=== PATIENT | female | born 1975 | race Caucasian/White ===

== ENCOUNTER 2019-02-15 06:37 | Emergency (ER) | payer SELFPAY ==
[2019-02-15 06:45] VITALS: BP 216/117; PULSE 86; RESP 19; TEMP 37; O2SAT 97; BMI 31.2
--- NOTE | 2019-02-15 06:47 | DI.RAD.S_ITS ---
PROCEDURE: XR CHEST 1V INDICATIONS: Shortness of breath, cough TECHNIQUE: One view of the chest was acquired. COMPARISON: None. FINDINGS: Surgical changes and devices: None. Lungs and pleura: Lungs are clear. No pleural effusions or pneumothorax. Mediastinum: Mediastinal contours appear normal. Heart size is normal. Bones and chest wall: No suspicious bony lesions. Overlying soft tissues appear unremarkable. IMPRESSION: No active cardiopulmonary disease. Dictated by: Melba Woody M.D. on 02/15/2019 at 9:19 Approved by: Melba Woody M.D. on 02/15/2019 at 9:19
--- NOTE | 2019-02-15 06:51 | ED_ITS ---
HPI - Back Pain/Injury <Mal Dillon DO - Last Filed: 02/15/19 21:52> General Chief Complaint: Back Pain/Injury Stated Complaint: doesn't feel right, alot of pain Time Seen by Provider: 02/15/19 06:38 Source: patient Limitations: no limitations History of Present Illness HPI Narrative: 43-year-old female nonsmoker with history of significant hypertension even while on medications presents with her significant other in the chief complaint of fever, shaking chills back pain as well as shortness of breath and cough for the past few days. She had been having urinary complaints for upwards of 3 weeks including dysuria, frequency and urgency before presenting to would be general on Monday. She was diagnosed with pyelonephritis and put on cefdinir. She has been taking medications as directed but presents today feeling as stated. She continues to have some difficulty with urination and even admits to decreased urination. She is a bit weak and generally feeling under the weather. She had initially presented to the above-stated emergency department again but the wait was too long hence her decision to come here MD Complaint: back pain Onset (ago): day(s) Duration: constant Similar Symptoms Previously: Yes Location: left flank and right flank Severity: moderate Quality: aching Radiation: none Relieving factors: none Exacerbating factors: movement Associated symptoms: weakness, fatigue, fever and dysuria Related Data Previous Rx's Medication Instructions Recorded levofloxacin [Levaquin] 750 mg PO DAILY #7 tab 02/15/19 Allergies Allergy/AdvReac Type Severity Reaction Status Date / Time Sulfa (Sulfonamide Allergy Verified 02/15/19 07:07 Antibiotics) Review of Systems <DO Luis Carlos Ye Last Filed: 02/15/19 21:52> Constitutional Constitutional: Reports body ache(s), Reports chills, Reports fatigue, Reports fever(s), Denies frequent falls, Denies lethargy and Reports weakness Eyes Eyes: Denies change in vision, Denies eye discharge, Denies irritation and Denies loss of vision ENT Ears, Nose, Mouth, and Throat: Denies change in voice, Denies dizziness, Denies neck pain, Denies sore throat and Denies throat swelling Cardiovascular Cardiovascular: Denies chest pain, Denies irregular heart rhythm, Denies lightheadedness, Denies palpitations, Denies dyspnea, Denies dyspnea on exertion and Denies orthopnea Respiratory Respiratory: Denies cough, Denies dyspnea, Denies dyspnea on exertion and Denies wheezing Gastrointestinal Gastrointestinal: Denies abdominal pain, Denies change in bowel habits, Denies diarrhea, Denies nausea and Denies vomiting Genitourinary Genitourinary: Denies hematuria, Reports flank pain, Denies urinary incontinence and Reports urinary urgency Musculoskeletal Musculoskeletal: Reports back pain, Denies muscle weakness, Denies neck pain, Denies numbness and Denies tingling Integumentary/Breasts Skin/Breast: Denies pruritus, Denies erythema, Denies rash and Denies wounds Neurologic Neurologic: Denies behavioral changes, Denies confusion, Denies dizziness, Denies frequent falls, Denies loss of vision, Denies numbness, Denies tingling and Reports weakness Psychiatric Psychiatric: Denies anxiety, Denies behavioral changes, Denies confusion, Denies depression, Denies homicidal ideation and Denies suicidal ideation Endocrine Endocrine: Reports fatigue, Denies flushing and Denies palpitations Hematologic/Lymphatic Hematologic/Lymphatic: Denies easy bruising Allergic/Immunologic Allergic/Immunologic: Denies urticaria, Denies throat swelling and Denies wheezing Patient History <Mal Dillon DO - Last Filed: 02/15/19 21:52> Social History Smoking Status: Current every day smoker Substance Use Type: marijuana Exam <Mal Dillon DO - Last Filed: 02/15/19 21:52> Narrative Exam Narrative: GENERAL: [43] year old patient appears stated age. Well- nourished, well-developed patient, in mild distress. HEAD: Atraumatic. Normocephalic. EYES: Pupils equal round and reactive. Extraocular motions intact. No scleral icterus. No injection or drainage. ENT: Nose without bleeding, purulent drainage. Throat without erythema, tonsillar hypertrophy or exudate. Airway patent. NECK: Trachea midline. Non tender CARDIOVASCULAR: Regular rate and rhythm without murmurs, gallops, or rubs. RESPIRATORY: Clear to auscultation. Breath sounds equal bilaterally. No wheezes, rales, or rhonchi. GASTROINTESTINAL: Abdomen soft, non-tender, nondistended. EXTREMITIES: No edema or joint tenderness. BACK: Mild B/L flank pain NEURO: AOx3. SKIN: No rash or erythema of visible areas Initial Vital Signs Initial Vital Signs: Vital Signs Temperature 98.6 F 02/15/19 06:45 Pulse Rate 86 02/15/19 06:45 Respiratory Rate 19 02/15/19 06:45 Blood Pressure 216/117 H 02/15/19 06:45 Pulse Oximetry 97 02/15/19 06:45 <Jenn Tripp DO - Last Filed: 02/15/19 15:02> Initial Vital Signs Initial Vital Signs: Vital Signs Temperature 98.6 F 02/15/19 06:45 Pulse Rate 86 02/15/19 06:45 Respiratory Rate 19 02/15/19 06:45 Blood Pressure 216/117 H 02/15/19 06:45 Pulse Oximetry 97 02/15/19 06:45 Course <Mal Dillon DO - Last Filed: 02/15/19 21:52> Course Course Narrative: initial exam and workup initiated by myself, signed out to Dr. Tripp for completion of care Orders Ordered: Discontinued Medications Sodium Chloride (Normal Saline 0.9%) 1,000 mls @ 1,000 mls/hr IV BOLUS ONE Stop: 02/15/19 07:46 Last Infusion: 02/15/19 09:14 Dose: 0 mls/hr Documented by: Admin: 02/15/19 07:05 Dose: 1,000 mls/hr Documented by: MILDRED Levofloxacin (Levaquin) 500 mg in 100 mls @ 100 mls/hr IV NOW ONE Stop: 02/15/19 07:46 Last Infusion: 02/15/19 09:13 Dose: 0 mls/hr Documented by: Admin: 02/15/19 07:05 Dose: 100 mls/hr Documented by: MILDRED Ketorolac Tromethamine (Toradol) 15 mg IV NOW ONE Stop: 02/15/19 06:48 Last Admin: 02/15/19 07:04 Dose: 15 mg Documented by: MILDRED Vital Signs Vital signs: Vital Signs - 8 hr 02/15/19 07:45 02/15/19 08:30 02/15/19 08:59 Pulse Rate 78 80 75 Respiratory Rate 20 14 26 H Blood Pressure [Left Arm] 176/103 H 116/81 116/81 Pulse Oximetry 98 100 100 <Jenn Tripp DO - Last Filed: 02/15/19 15:02> Orders Ordered: Discontinued Medications Sodium Chloride (Normal Saline 0.9%) 1,000 mls @ 1,000 mls/hr IV BOLUS ONE Stop: 02/15/19 07:46 Last Infusion: 02/15/19 09:14 Dose: 0 mls/hr Documented by: Admin: 02/15/19 07:05 Dose: 1,000 mls/hr Documented by: MILDRED Levofloxacin (Levaquin) 500 mg in 100 mls @ 100 mls/hr IV NOW ONE Stop: 02/15/19 07:46 Last Infusion: 02/15/19 09:13 Dose: 0 mls/hr Documented by: Admin: 02/15/19 07:05 Dose: 100 mls/hr Documented by: MILDRED Ketorolac Tromethamine (Toradol) 15 mg IV NOW ONE Stop: 02/15/19 06:48 Last Admin: 02/15/19 07:04 Dose: 15 mg Documented by: MILDRED Vital Signs Vital signs: Vital Signs - 8 hr 02/15/19 07:45 02/15/19 08:30 02/15/19 08:59 Pulse Rate 78 80 75 Respiratory Rate 20 14 26 H Blood Pressure [Left Arm] 176/103 H 116/81 116/81 Pulse Oximetry 98 100 100 MDM - Back Pain/Injury <Mal Dillon DO - Last Filed: 02/15/19 21:52> Lab Data Result diagrams: 02/15/19 07:15 02/15/19 07:15 Labs: Lab Results 02/15/19 02/15/19 02/15/19 Range/Units 07:15 07:15 07:15 WBC 11.2 H (4.5-11.0) X10^3/uL RBC 4.82 (4.0-5.2) X10^6/uL Hgb 13.3 (12.0-16.0) g/dL Hct 39.6 (36-46) % MCV 82.2 (80-100) fL MCH 27.7 (26-34) PG MCHC 33.7 (30-36) % RDW 13.0 (11.6-14.8) % Plt Count 362 (150-400) X10^3/uL Neut % (Auto) 67.1 (50-75) % Lymph % (Auto) 21.7 L (25-40) % Cecil % (Auto) 9.2 (3-14) % Eos % (Auto) 1.2 L (2-4) % Baso % (Auto) 0.8 (0-2) % Neut # (Auto) 7500 H (4234-1374) /uL Lymph # (Auto) 2400 (2527-4372) /uL Cecil # (Auto) 1000 H (0-900) /uL Eos # (Auto) 100 (0-450) /uL Baso # (Auto) 100 (0-100) /uL Sodium 137 (137-145) mmol/L Potassium 3.4 (3.4-5.1) mmol/L Chloride 99 (98-107) mmol/L Carbon Dioxide 28 (22-32) mmol/L BUN 13 (7-17) mg/dL Creatinine 0.70 (0.52-1.04) mg/dL Estimated GFR > 60.0 (>60) mL/min BUN/Creatinine Ratio 18.6 (6-22) Glucose 104 H (70-100) mg/dL Lactate (0.7-2.1) mmol/L Calcium 9.7 (8.4-10.2) mg/dL Total Bilirubin 0.3 (0.2-1.3) mg/dL AST 19 (14-36) IU/L ALT 15 (<35) IU/L Alkaline Phosphatase 87 (38-126) U/L Total Creatine Kinase (30-135) U/L CK-MB (CK-2) CK-MB (CK-2) Rel Index Troponin I (0.01-0.034) ng/mL Total Protein 7.6 (6.3-8.2) g/dL Albumin 4.3 (3.5-5.0) g/dL Globulin 3.3 (1.7-4.1) g/dL Albumin/Globulin Ratio 1.3 (1.0-2.8) Procalcitonin < 0.05 (<0.5) ng/mL Urine RBC (0-5/HPF) Urine WBC (0-5/HPF) Ur Squamous Epith Cells (0-5/HPF) Urine Bacteria (None) Ur Culture Indicated? 11/08/19 11/08/19 11/08/19 Range/Units 07:15 07:15 07:58 WBC (4.5-11.0) X10^3/uL RBC (4.0-5.2) X10^6/uL Hgb (12.0-16.0) g/dL Hct (36-46) % MCV (80-100) fL MCH (26-34) PG MCHC (30-36) % RDW (11.6-14.8) % Plt Count (150-400) X10^3/uL Neut % (Auto) (50-75) % Lymph % (Auto) (25-40) % Cecil % (Auto) (3-14) % Eos % (Auto) (2-4) % Baso % (Auto) (0-2) % Neut # (Auto) (3745-0647) /uL Lymph # (Auto) (7339-8742) /uL Cecil # (Auto) (0-900) /uL Eos # (Auto) (0-450) /uL Baso # (Auto) (0-100) /uL Sodium (137-145) mmol/L Potassium (3.4-5.1) mmol/L Chloride (98-107) mmol/L Carbon Dioxide (22-32) mmol/L BUN (7-17) mg/dL Creatinine (0.52-1.04) mg/dL Estimated GFR (>60) mL/min BUN/Creatinine Ratio (6-22) Glucose (70-100) mg/dL Lactate 1.4 (0.7-2.1) mmol/L Calcium (8.4-10.2) mg/dL Total Bilirubin (0.2-1.3) mg/dL AST (14-36) IU/L ALT (<35) IU/L Alkaline Phosphatase (38-126) U/L Total Creatine Kinase 46 (30-135) U/L CK-MB (CK-2) TNP CK-MB (CK-2) Rel Index TNP Troponin I < 0.012 (0.01-0.034) ng/mL Total Protein (6.3-8.2) g/dL Albumin (3.5-5.0) g/dL Globulin (1.7-4.1) g/dL Albumin/Globulin Ratio (1.0-2.8) Procalcitonin (<0.5) ng/mL Urine RBC 1-5/hpf (0-5/HPF) Urine WBC 0-1/hpf (0-5/HPF) Ur Squamous Epith Cells 5-10 /hpf H (0-5/HPF) Urine Bacteria Occasional (0-1) (None) Ur Culture Indicated? Cult not indicated Point of Care Testing Test Results Negative Urine Dip Bedside Urine Glucose Negative Bedside Urine Bilirubin - Negative Bedside Urine Ketone - Negative Urine Specific [place] 1.015 Bedside Urine Occult Blood +/- Bedside Urine pH 6.0 Bedside Urine Protein - Negative Bedside Urine Urobilinogen - Negative Bedside Urine Nitrite - Negative Bedside Urine Leukocytes - Negative Esterase <Jenn Tripp DO - Last Filed: 02/15/19 15:02> Lab Data Attestation: I reviewed the patient's lab results. Labs: Lab Results 02/15/19 02/15/19 02/15/19 Range/Units 07:15 07:15 07:15 WBC 11.2 H (4.5-11.0) X10^3/uL RBC 4.82 (4.0-5.2) X10^6/uL Hgb 13.3 (12.0-16.0) g/dL Hct 39.6 (36-46) % MCV 82.2 (80-100) fL MCH 27.7 (26-34) PG MCHC 33.7 (30-36) % RDW 13.0 (11.6-14.8) % Plt Count 362 (150-400) X10^3/uL Neut % (Auto) 67.1 (50-75) % Lymph % (Auto) 21.7 L (25-40) % Cecil % (Auto) 9.2 (3-14) % Eos % (Auto) 1.2 L (2-4) % Baso % (Auto) 0.8 (0-2) % Neut # (Auto) 7500 H (3163-7253) /uL Lymph # (Auto) 2400 (8378-2479) /uL Cecil # (Auto) 1000 H (0-900) /uL Eos # (Auto) 100 (0-450) /uL Baso # (Auto) 100 (0-100) /uL Sodium 137 (137-145) mmol/L Potassium 3.4 (3.4-5.1) mmol/L Chloride 99 (98-107) mmol/L Carbon Dioxide 28 (22-32) mmol/L BUN 13 (7-17) mg/dL Creatinine 0.70 (0.52-1.04) mg/dL Estimated GFR > 60.0 (>60) mL/min BUN/Creatinine Ratio 18.6 (6-22) Glucose 104 H (70-100) mg/dL Lactate (0.7-2.1) mmol/L Calcium 9.7 (8.4-10.2) mg/dL Total Bilirubin 0.3 (0.2-1.3) mg/dL AST 19 (14-36) IU/L ALT 15 (<35) IU/L Alkaline Phosphatase 87 (38-126) U/L Total Creatine Kinase (30-135) U/L CK-MB (CK-2) CK-MB (CK-2) Rel Index Troponin I (0.01-0.034) ng/mL Total Protein 7.6 (6.3-8.2) g/dL Albumin 4.3 (3.5-5.0) g/dL Globulin 3.3 (1.7-4.1) g/dL Albumin/Globulin Ratio 1.3 (1.0-2.8) Procalcitonin < 0.05 (<0.5) ng/mL Urine RBC (0-5/HPF) Urine WBC (0-5/HPF) Ur Squamous Epith Cells (0-5/HPF) Urine Bacteria (None) Ur Culture Indicated? 02/15/19 02/15/19 02/15/19 Range/Units 07:15 07:15 07:58 WBC (4.5-11.0) X10^3/uL RBC (4.0-5.2) X10^6/uL Hgb (12.0-16.0) g/dL Hct (36-46) % MCV (80-100) fL MCH (26-34) PG MCHC (30-36) % RDW (11.6-14.8) % Plt Count (150-400) X10^3/uL Neut % (Auto) (50-75) % Lymph % (Auto) (25-40) % Cecil % (Auto) (3-14) % Eos % (Auto) (2-4) % Baso % (Auto) (0-2) % Neut # (Auto) (3993-2650) /uL Lymph # (Auto) (6725-0777) /uL Cecil # (Auto) (0-900) /uL Eos # (Auto) (0-450) /uL Baso # (Auto) (0-100) /uL Sodium (137-145) mmol/L Potassium (3.4-5.1) mmol/L Chloride (98-107) mmol/L Carbon Dioxide (22-32) mmol/L BUN (7-17) mg/dL Creatinine (0.52-1.04) mg/dL Estimated GFR (>60) mL/min BUN/Creatinine Ratio (6-22) Glucose (70-100) mg/dL Lactate 1.4 (0.7-2.1) mmol/L Calcium (8.4-10.2) mg/dL Total Bilirubin (0.2-1.3) mg/dL AST (14-36) IU/L ALT (<35) IU/L Alkaline Phosphatase (38-126) U/L Total Creatine Kinase 46 (30-135) U/L CK-MB (CK-2) TNP CK-MB (CK-2) Rel Index TNP Troponin I < 0.012 (0.01-0.034) ng/mL Total Protein (6.3-8.2) g/dL Albumin (3.5-5.0) g/dL Globulin (1.7-4.1) g/dL Albumin/Globulin Ratio (1.0-2.8) Procalcitonin (<0.5) ng/mL Urine RBC 1-5/hpf (0-5/HPF) Urine WBC 0-1/hpf (0-5/HPF) Ur Squamous Epith Cells 5-10 /hpf H (0-5/HPF) Urine Bacteria Occasional (0-1) (None) Ur Culture Indicated? Cult not indicated Point of Care Testing Test Results Negative Urine Dip Bedside Urine Glucose Negative Bedside Urine Bilirubin - Negative Bedside Urine Ketone - Negative Urine Specific [place] 1.015 Bedside Urine Occult Blood +/- Bedside Urine pH 6.0 Bedside Urine Protein - Negative Bedside Urine Urobilinogen - Negative Bedside Urine Nitrite - Negative Bedside Urine Leukocytes - Negative Esterase Imaging Data CT angio: Radiologist's impression: PROCEDURE: CT ANGIO CHEST ABDOMEN PELVIS INDICATIONS: back and chest pain with high blood pressure TECHNIQUE: Precontrast 5 mm thick sections acquired from the lung apices to the iliac crests. After the administration of intravenous contrast, 2.5 mm thick sections again acquired from the lung apices to the iliac crests. Maximum intensity projection (MIP) oblique sagittal and coronal reformats were then acquired. For radiation dose reduction, the following was used: automated exposure control. COMPARISON: None. FINDINGS: Image quality: Excellent. AORTA: There is normal contrast opacification of thoracic and abdominal aorta. Ascending thoracic aorta measures up to 3.6 cm in largest AP diameter. Descending thoracic aorta measures up to 2.6 cm in largest AP diameter. The suprarenal abdominal aorta measures up to 2.1 cm in largest AP diameter. Infrarenal abdominal aorta measures up to 1.5 cm in largest AP diameter. There is no thoracic or abdominal aortic dissection. Scattered atelectasis are noted in bilateral lower lung choi. CHEST: Lungs and pleura: No acute airspace opacities. No pleural effusions or pneumothorax. Central and peripheral airways are patent and normal in caliber. Mediastinum: Heart size is normal. No pericardial effusion. No mediastinal or hilar adenopathy by size criteria. Central pulmonary arteries are normal in size. Esophagus is normal in caliber. No hiatal hernias. Bones and chest wall: No axillary adenopathy by size criteria. Thyroid gland is within normal limits. No suspicious bony lesions. No vertebral body compression fractures. ABDOMEN: Vasculature: Separate origin of gastrohepatic trunk and splenic artery is seen. Both vessels are patent. The mesenteric arteries are patent. Renal arteries are also patent. Solid organs: Liver is normal in size and enhancement. Hepatic steatosis is seen. Uterus and bilateral adnexa show no gross abnormality. Gallbladder is within normal limits. Biliary system is non dilated. Pancreas enhances normally. Spleen is normal in size and enhancement. No adrenal nodules. Both kidneys are normal in size and enhancement, without hydronephrosis. Peritoneum and bowel: No free fluid or air. Bowel loops are normal in caliber and wall thickness. Nodes and vessels: No retroperitoneal or mesenteric adenopathy by size criteria. Inferior vena cava is normal in morphology. Miscellaneous: No ventral hernias. PELVIS: Genitourinary: Bladder wall thickness is normal. Miscellaneous: No inguinal hernias or adenopathy. No ventral hernias. Bones: No suspicious bony lesions. No vertebral body compression fractures. IMPRESSION: 1. Normal size of thoracic and abdominal aorta. No aortic aneurysm or dissection. 2. Pulmonary arteries are normal in size and show no filling defect to suggest pulmonary emboli. 3. Major branches of abdominal aorta are patent. Incidentally noted of separate origins of gastrohepatic trunk and the splenic artery from abdominal aorta which is a normal variant. 4. Bilateral lungs are essentially clear. Airway is patent. 5. No acute inflammatory process within abdomen or pelvis. No free fluid or free air. Dictated by: Mau Ambrose M.D. on 02/15/2019 at 8:19 ECG Data Attestation: I personally reviewed and interpreted this ECG as follows: Prior ECG tracings: not available for review Interpretation: Normal sinus rhythm rate 74 p.r. interval 140, QRS [address] elevations or depression no T-wave inversions MDM Narrative Medical decision making narrative: Patient signed out to me by Dr. Dillon. I seen evaluated patient myself. She has had is UTI like symptoms for number of weeks seen and evaluated 5 days ago at another facility started on antibiotics but overall does not feel better. She was having flank pain bilaterally however now she is having this chest discomfort along with pain between her shoulder blades. She is noted to be quite hypertensive in the emergency department. She states that her blood pressure is chronically not controlled she stops taking her medication. She feels like her pain overall is moving upwards. It does go up to her neck as well she complained of both hands being blue at 1 point. They are warm with good pulses now. Will at EKG troponin and CT CT negative for any dissection. She actually does not have any sign of his UTI or sepsis. However based on pain and previous symptoms will switch her over to Levaquin she did receive 1 dose of IV Levaquin. She overall is feeling much better. I discussed all findings with the patient and spouse, Education has been performed regarding treatment plan, diagnosis, warning signs and symptoms and all concerns have been addressed. Verbally agree with and understood all of the above. Discharge Plan Departure Patient Disposition: Home Clinical Impression: Pyelonephritis Discharge Date/Time: 02/15/19 09:23 Instructions: Kidney Infection Activity Restrictions/Additional Instructions: *You have been diagnosed with kidney infection *What to do: At this time blood work and CT scan are reassuring. We will change her antibiotic. I do strongly recommend that you see a primary care provider in regards to her blood pressure and start taking blood pressure medication on a regular basis. His persistently elevated blood pressure up a to at risk for strokes and heart attacks *Continue to take medications as directed Stop taking cefdinir Levaquin 750 mg once a day for 7 days *Follow up with your primary care provider in 2-3 days *Return to ER if you should have increasing flank pain, back pain, chest pain or any new, worsening or concerning symptoms Prescriptions: New levofloxacin [Levaquin] 750 mg tablet 750 mg PO DAILY Qty: 7 RF: 0 Referrals: [facility] [Outside] Stand Alone Forms: Work Release Note
[2019-02-15] MEDS: KETOROLAC 60 MG/2 ML VIAL 15 MG IV (07:04)
[2019-02-15] MEDS: levoFLOXacin 500 MG/100 ML PIGGYBACK 100 MG IV (07:05)
[2019-02-15] MEDS: SODIUM CHLORIDE 0.9% 1,000 ML 1000 ML IV (07:05)
[2019-02-15 07:27] LABS: Add Manual Diff / Slide Review NO; Basophils Absolute Auto 100 /uL (0-100); Basophils Percent Auto 0.8 % (0-2); Eosinophils Absolute Auto 100 /uL (0-450); Eosinophils Percent Auto 1.2 % (2-4); Hematocrit 39.6 % (36-46); Hemoglobin 13.3 g/dL (12.0-16.0); Lymphocytes Absolute Auto 2400 /uL (1100-4500); Lymphocytes Percent Auto 21.7 % (25-40); Mean Corpuscular HGB Conc 33.7 % (30-36); Mean Corpuscular Hemoglobin 27.7 PG (26-34); Mean Corpuscular Volume 82.2 fL (80-100); Monocytes Absolute Auto 1000 /uL (0-900); Monocytes Percent Auto 9.2 % (3-14); Neutrophils Absolute Auto 7500 /uL (1500-7000); Neutrophils Percent Auto 67.1 % (50-75); Platelet Count 362 X10^3/uL (150-400); Red Blood Cell Count 4.82 X10^6/uL (4.0-5.2); White Blood Cell Count 11.2 X10^3/uL (4.5-11.0)
--- NOTE | 2019-02-15 07:38 | DI.CT.S_ITS ---
PROCEDURE: CT ANGIO CHEST ABDOMEN PELVIS INDICATIONS: back and chest pain with high blood pressure TECHNIQUE: Precontrast 5 mm thick sections acquired from the lung apices to the iliac crests. After the administration of intravenous contrast, 2.5 mm thick sections again acquired from the lung apices to the iliac crests. Maximum intensity projection (MIP) oblique sagittal and coronal reformats were then acquired. For radiation dose reduction, the following was used: automated exposure control. COMPARISON: None. FINDINGS: Image quality: Excellent. AORTA: There is normal contrast opacification of thoracic and abdominal aorta. Ascending thoracic aorta measures up to 3.6 cm in largest AP diameter. Descending thoracic aorta measures up to 2.6 cm in largest AP diameter. The suprarenal abdominal aorta measures up to 2.1 cm in largest AP diameter. Infrarenal abdominal aorta measures up to 1.5 cm in largest AP diameter. There is no thoracic or abdominal aortic dissection. Scattered atelectasis are noted in bilateral lower lung choi. CHEST: Lungs and pleura: No acute airspace opacities. No pleural effusions or pneumothorax. Central and peripheral airways are patent and normal in caliber. Mediastinum: Heart size is normal. No pericardial effusion. No mediastinal or hilar adenopathy by size criteria. Central pulmonary arteries are normal in size. Esophagus is normal in caliber. No hiatal hernias. Bones and chest wall: No axillary adenopathy by size criteria. Thyroid gland is within normal limits. No suspicious bony lesions. No vertebral body compression fractures. ABDOMEN: Vasculature: Separate origin of gastrohepatic trunk and splenic artery is seen. Both vessels are patent. The mesenteric arteries are patent. Renal arteries are also patent. Solid organs: Liver is normal in size and enhancement. Hepatic steatosis is seen. Uterus and bilateral adnexa show no gross abnormality. Gallbladder is within normal limits. Biliary system is non dilated. Pancreas enhances normally. Spleen is normal in size and enhancement. No adrenal nodules. Both kidneys are normal in size and enhancement, without hydronephrosis. Peritoneum and bowel: No free fluid or air. Bowel loops are normal in caliber and wall thickness. Nodes and vessels: No retroperitoneal or mesenteric adenopathy by size criteria. Inferior vena cava is normal in morphology. Miscellaneous: No ventral hernias. PELVIS: Genitourinary: Bladder wall thickness is normal. Miscellaneous: No inguinal hernias or adenopathy. No ventral hernias. Bones: No suspicious bony lesions. No vertebral body compression fractures. IMPRESSION: 1. Normal size of thoracic and abdominal aorta. No aortic aneurysm or dissection. 2. Pulmonary arteries are normal in size and show no filling defect to suggest pulmonary emboli. 3. Major branches of abdominal aorta are patent. Incidentally noted of separate origins of gastrohepatic trunk and the splenic artery from abdominal aorta which is a normal variant. 4. Bilateral lungs are essentially clear. Airway is patent. 5. No acute inflammatory process within abdomen or pelvis. No free fluid or free air. Dictated by: Mau Ambrose M.D. on 02/15/2019 at 8:19 Approved by: Mau Ambrose M.D. on 02/15/2019 at 8:38
[2019-02-15 07:39] LABS: Alanine Aminotransferase 15 IU/L (<35); Albumin 4.3 g/dL (3.5-5.0); Albumin Globulin Ratio 1.3 (1.0-2.8); Alkaline Phosphatase 87 U/L (38-126); Aspartate Aminotransferase 19 IU/L (14-36); BUN Creatinine Ratio 18.6 (6-22); Bilirubin Total 0.3 mg/dL (0.2-1.3); Blood Urea Nitrogen 13 mg/dL (7-17); Calcium 9.7 mg/dL (8.4-10.2); Carbon Dioxide 28 mmol/L (22-32); Chloride 99 mmol/L (98-107); Creatine Kinase 46 U/L (30-135); Estimated Glomerular Filt Rate > 60.0 mL/min (>60); Globulin 3.3 g/dL (1.7-4.1); Glucose 104 mg/dL (70-100); HEMOLYSIS 19 (0-50); Lactate (Lactic Acid) 1.4 mmol/L (0.7-2.1); Potassium 3.4 mmol/L (3.4-5.1); Sodium 137 mmol/L (137-145); Total Protein 7.6 g/dL (6.3-8.2)
[2019-02-15 07:45] VITALS: BP 176/103; PULSE 78; RESP 20; O2SAT 98
[2019-02-15 07:51] LABS: Troponin I < 0.012 ng/mL (0.01-0.034)
[2019-02-15 07:57] LABS: Procalcitonin < 0.05 ng/mL (<0.5)
--- NOTE | 2019-02-15 08:03 | PC.NURSE ---
pt has red lesions over her abdomen. states that she has had the lesions for a long time.
[2019-02-15 08:15] LABS: RBC Urine 1-5/HPF (0-5/HPF); WBC Urine 0-1/HPF (0-5/HPF)
[2019-02-15 08:16] LABS: Bacteria Urine Occasional (0-1); Culture Indicated Urine Cult Not Indicated; Squamous Epithelial Cell Urine 5-10 /HPF (0-5/HPF)
[2019-02-15 08:30] VITALS: BP 116/81; PULSE 80; RESP 14; O2SAT 100
[2019-02-15 08:59] VITALS: BP 116/81; PULSE 75; RESP 26; O2SAT 100
== END 2019-02-15 09:23 | disposition home or self-care (01) ==
PROVIDERS: Emergency Medicine; Emergency Provider Emergency Medicine
DX: N12 Tubulo-interstitial nephritis, not specified as acute or chronic (principal); I10 Essential (primary) hypertension; R07.9 Chest pain, unspecified; R50.9 Fever, unspecified; R10.9 Unspecified abdominal pain; R06.02 Shortness of breath
CPT/HCPCS: 36415; 71045; 71275; 74174; 80053; 81003; 81015; 81025; 82550; 83605; 84145; 84484; 85025; 87040; 93005; 93010; 96365; 96366; 96375; 99283; 99285; J1885; J1956

== ENCOUNTER 2020-10-15 11:16 | Emergency (ER) | payer OTHER, MEDICAID, SELFPAY ==
[2020-10-15 12:50] VITALS: BP 178/88; PULSE 79; RESP 18; TEMP 36.6; O2SAT 98; BMI 30.2
== END 2020-10-15 15:19 | disposition left against medical advice (07) ==
PROVIDERS: Emergency Provider Emergency Medicine
CPT/HCPCS: 99281

== ENCOUNTER 2020-10-20 08:34 | Emergency (ER) | payer OTHER, MEDICAID, SELFPAY ==
[2020-10-20 08:45] VITALS: BP 188/96; PULSE 76; RESP 18; TEMP 36.7; O2SAT 99; BMI 32.3
--- NOTE | 2020-10-20 08:46 | ED_ITS ---
HPI - General Adult General Chief complaint: Ear Stated complaint: middle ear infection Time Seen by Provider: 10/20/20 08:46 Source: patient Mode of arrival: Ambulatory Limitations: no limitations History of Present Illness HPI narrative: This a 45-year-old female who comes with complaint of your infection. Patient states she has been having drainage from her left ear on and off for the past 4 years. The last episode was 2 or 3 years ago. Patient states she was told she had a perforated ear drum that had never healed. She states they have given her antibiotic ear drops to place in her ear in the past. It is her left ear that is affected. Patient states she started noticing some purulent drainage over the last several days. She does not really have any pain she will have occasionally some discomfort. She has not had any change in her hearing over the years. She does not any decreased recently. No fevers, no cough cold or congestion. She does not any known seasonal allergies. She has never seen ENT specialist or anyone else for her ear. Patient denies any other symptoms. She does states she has a history of hypertension is been off medications for several years. She would like to restart her lisinopril which she said was at 10 mg daily. Patient states she is willing to follow up with the primary care physician to reestablished. She denies any other medical issues. x4. She has allergies to erythromycin, penicillin and sulfa. Related Data Previous Rx's Medication Instructions Recorded levofloxacin 750 mg tablet 750 mg PO DAILY #7 tab 02/15/19 (Levaquin) lisinopril 10 mg tablet 10 mg PO DAILY #14 tab 10/20/20 ofloxacin 0.3 % ear drops 5 drp EAR-LEFT BID 7 Days #5 ml 10/20/20 Allergies Allergy/AdvReac Type Severity Reaction Status Date / Time erythromycin base Allergy Anaphylaxis Verified 10/15/20 12:53 Penicillins Allergy Verified 10/15/20 12:53 Sulfa (Sulfonamide Allergy Verified 02/15/19 07:07 Antibiotics) Review of Systems Review of Systems ROS Unobtainable: All systems reviewed & are unremarkable except as noted in HPI and below Patient History Social History Smoking Status: Current every day smoker Smoking Status: Current every day smoker Substance Use Type: marijuana Exam Narrative Exam Narrative: GEN: well nourished, well appearing Female, alert and oriented x 3, patient appears to be in mild distress. HEENT: Atraumatic, pupils are equal round reactive to light, extraocular movements are intact, nares are clear, rightTM is are clear, with mild fluid. No erythema or skin changes. Left TM actually appears to majority is intact, it is difficult to tell there may be a small opening at the base at the 6 o'clock position but unable to fully visualize that portion. Otherwise the tympanic membrane appears intact although it does appear to have healed, it is opaque in its entirety with what appears to be fluid and not just scar tissue. There is a small amount of drainage from the ear that appears serosanguineous and patient has erythema of the eardrum itself with some very mild swelling but I am able to visualize the majority of the eardrum. Throat is clear without any exudates, erythema, tonsillar enlargement or uvular deviation HEART: Regular rate and rhythm without murmur, clicks, rubs. LUNGS:Lungs clear to auscultation, no wheezes, rales, crackles, chest moves symmetrically ABD:bowel sounds normal, soft, non-tender, no guarding, rebound, rigidity, no masses noted, no hepatosplenomegaly MSCL: Non-tender, full range of motion, normal gait NEURO:CN 2-12 intact, sensation normal, normal gait. SKIN: no rash or other skin changes. Initial Vital Signs Initial Vital Signs: Vital Signs Temperature 98.0 F 10/20/20 08:45 Pulse Rate 76 10/20/20 08:45 Respiratory Rate 18 10/20/20 08:45 Blood Pressure 188/96 H 10/20/20 08:45 Pulse Oximetry 99 10/20/20 08:45 Course Vital Signs Vital signs: Vital Signs - 8 hr 10/20/20 08:45 Temperature 98.0 F Pulse Rate 76 Respiratory Rate 18 Blood Pressure 188/96 H Pulse Oximetry 99 Medical Decision Making [facility] Narrative Medical decision making narrative: 45-year-old female comes emergency depart with chronic with perforated TM with intermittent otitis externus from her description. T appears to be intact although it is difficult there may be an opening at the very base. Patient was covered with antibiotics that should not be ototoxic if she does have a perforate tympanic membrane. Patient was offered referral to ENT to follow up if she has a small open area she may be able to have repair although she is quite far out from her initial injury so potential not. She asked for refill of her lisinopril, she is aware that there is potential for renal dysfunction after restarting this medication and she needs follow-up with lab testing in the next week or so. Patient states she will follow-up was given a 2 week prescription. she is otherwise asymptomatic. Discharge Plan Departure Patient Disposition: Home Clinical Impression: Otitis externa, Hypertension Instructions: Ruptured Eardrum, DI for Otitis Externa Activity Restrictions/Additional Instructions: Would recommend following up with ENT for follow-up regarding her tympanic membrane. The majority appears intact although it difficult to see the lower edge and this may be open. Referral is included below. Call for an appointment. You do have a mild otitis externa on exam and please use ofloxacin drops, 5 drops twice daily to the left ear for 7-10 days until symptoms have resolved. I would recommend you restart lisinopril. This medication can affect her renal function so you do need to follow-up with primary care in the next 7-14 days to have it rechecked. Return for fevers, rapidly worsening ear pain, lightheadedness or passing out, new swelling of her ear, face or neck, decrease in hearing, or other new or concerning symptoms. Prescriptions: New lisinopril 10 mg tablet 10 mg PO DAILY Qty: 14 RF: 0 ofloxacin 0.3 % drops 5 drp EAR-LEFT BID 7 Days Qty: 5 RF: 0 No Action levofloxacin [Levaquin] 750 mg tablet 750 mg PO DAILY Qty: 7 RF: 0 Referrals: Jaun Castillo MD [Physician] -
== END 2020-10-20 09:19 | disposition home or self-care (01) ==
PROVIDERS: Emergency Provider Emergency Medicine
DX: I10 Essential (primary) hypertension (principal)
CPT/HCPCS: 99281

== ENCOUNTER 2021-08-31 21:23 | Emergency (ER) | payer OTHER, MEDICAID, SELFPAY ==
[2021-08-31 21:28] VITALS: BP 191/108; PULSE 88; RESP 18; TEMP 36.9; O2SAT 100
[2021-08-31 23:47] LABS: Add Manual Diff / Slide Review NO; Basophils Absolute Auto 0 /uL (0-100); Basophils Percent Auto 0.4 % (0-2); Eosinophils Absolute Auto 100 /uL (0-450); Eosinophils Percent Auto 1.3 % (2-4); Hematocrit 36.8 % (36-46); Hemoglobin 12.6 g/dL (12.0-16.0); Lymphocytes Absolute Auto 2100 /uL (1100-4500); Lymphocytes Percent Auto 24.3 % (25-40); Mean Corpuscular HGB Conc 34.2 % (30-36); Mean Corpuscular Hemoglobin 27.8 PG (26-34); Mean Corpuscular Volume 81.5 fL (80-100); Monocytes Absolute Auto 800 /uL (0-900); Monocytes Percent Auto 9.2 % (3-14); Neutrophils Absolute Auto 5700 /uL (1500-7000); Neutrophils Percent Auto 64.8 % (50-75); Platelet Count 300 X10^3/uL (150-400); Red Blood Cell Count 4.52 X10^6/uL (4.0-5.2); Red Cell Distribution Width 13.6 % (11.6-14.8); White Blood Cell Count 8.7 X10^3/uL (4.5-11.0)
[2021-09-01 00:13] LABS: Alanine Aminotransferase 15 IU/L (<35); Albumin 4.2 g/dL (3.5-5.0); Albumin Globulin Ratio 1.4 (1.0-2.8); Alkaline Phosphatase 72 U/L (38-126); Aspartate Aminotransferase 22 IU/L (14-36); BUN Creatinine Ratio 23.5 (6-22); Bilirubin Total 0.3 mg/dL (0.2-1.3); Blood Urea Nitrogen 19 mg/dL (7-17); Calcium 8.9 mg/dL (8.4-10.2); Carbon Dioxide 23 mmol/L (22-32); Chloride 104 mmol/L (98-107); Estimated Glomerular Filt Rate > 60 mL/min (>60); Globulin 2.9 g/dL (1.7-4.1); Glucose 148 mg/dL (70-100); HEMOLYSIS 19 (0-50); Lipase 89 U/L (23-300); Potassium 3.5 mmol/L (3.4-5.1); Sodium 137 mmol/L (137-145); Total Protein 7.1 g/dL (6.3-8.2)
--- NOTE | 2021-09-01 01:10 | DI.US.S_ITS ---
PROCEDURE: US PELVIC COMPLETE INDICATIONS: PAIN TECHNIQUE: Real-time scanning was performed of the pelvic organs, with image documentation. Additional endovaginal scanning was necessary due to incomplete visualization of the adnexal and endometrial structures by transabdominal scanning. COMPARISON: None. FINDINGS: Uterus: Uterus is anteverted and slightly enlarged in size at 10.0 x 4.4 by 4.8 cm. The myometrium is mildly heterogeneous. The endometrium measures 6.1 mm combined thickness. Uterus is sonographically normal. Ovaries: The right ovary measures 2.9 x 1.7 x 2.4 cm. Right ovary has normal sonographic appearance. The left ovary is not visualized and cannot be evaluated. No right adnexal masses are seen. Doppler evaluation demonstrates normal vascular flow in the right ovary. Other: No pathologic free abdominal or pelvic fluid. IMPRESSION: 1. Left ovary not visualized and cannot be evaluated. 2. Right ovary is sonographically normal with no evidence of right ovarian torsion. Please note ultrasound cannot exclude intermittent torsion. 3. Uterus slightly enlarged. Uterus is mildly heterogeneous suggesting adenomyosis. Dictated by: Karon Bell MD, PhD on 09/01/2021 at 7:50 Approved by: Karon Bell MD, PhD on 09/01/2021 at 8:23
[2021-09-01 01:42] LABS: Bacteria Urine None Seen; Calcium Oxalate Crystals Urine Moderate; Culture Indicated Urine Cult Not Indicated; RBC Urine 0-1/HPF (0-5/HPF); Squamous Epithelial Cell Urine 0-1 /HPF (0-5/HPF); WBC Urine 0-1/HPF (0-5/HPF)
[2021-09-01] MEDS: KETOROLAC 30 MG/ML VIAL 15 MG IV (01:58)
[2021-09-01 02:04] VITALS: BP 184/95; PULSE 66; RESP 16; O2SAT 99
--- NOTE | 2021-09-01 05:19 | ED_ITS ---
HPI - Abdominal Pain General Chief Complaint: Abdominal Pain Stated Complaint: ovary pain left and right sides Time Seen by Provider: 08/31/21 23:14 Source: patient Mode of arrival: Ambulatory History of Present Illness HPI narrative: 46F daily smoker with history of hypertension and variances presents with significant other and a chief complaint of multiple days of left lower and right lower quadrant pain that comes and goes without obvious provocation or palliation. She does admit that sometimes the pain radiates down her left ante rior leg. She denies any fever chills. She has no nausea or vomiting. She denies chest pain or shortness of breath. She has no dysuria, frequency or urgency. She denies vaginal bleeding or discharge. She states she has had pain like this in the past which had been thought to be related to ovarian cysts. Related Data Previous Rx's Medication Instructions Recorded levofloxacin 750 mg tablet 750 mg PO DAILY #7 tab 02/15/19 (Levaquin) lisinopril 10 mg tablet 10 mg PO DAILY #14 tab 10/20/20 ketorolac 10 mg tablet 10 mg PO Q6H PRN #14 tab 09/01/21 Allergies Allergy/AdvReac Type Severity Reaction Status Date / Time erythromycin base Allergy Anaphylaxis Verified 10/15/20 12:53 Penicillins Allergy Verified 10/15/20 12:53 Sulfa (Sulfonamide Allergy Verified 02/15/19 07:07 Antibiotics) Review of Systems Review of Systems Narrative: GENERAL: Denies chills, fatigue, malaise, fever, sweats. HEENT: Denies sinus pain, ear pain, sore throat, difficulty swallowing, dizziness. RESPIRATORY: Denies dyspnea, cough, wheezing, hemoptysis, sputum. CARDIOVASCULAR: Denies chest pain, palpitations, orthopnea, edema, GASTROINTESTINAL: See HPI : Denies dysuria, frequency, incontinence, hematuria, urinary retention. MUSCULOSKELETAL: denies weakness, joint pain, or bony pain SKIN: Denies rash, skin lesions, or other NEUROLOGIC: Denies weakness, headache, numbness, change in speech, confusion, seizures, incoordination. PSYCHIATRIC: No concerning psychosocial issues. 12 point review of systems is negative except for those stated above Patient History Social History Smoking Status: Current every day smoker Smoking Status: Current every day smoker Substance Use Type: marijuana Exam Narrative Exam Narrative: GENERAL: [46] year old patient appears stated age. Well-developed patient, in mild distress. HEAD: Atraumatic. Normocephalic. EYES: Pupils equal round and reactive. Extraocular motions intact. No scleral icterus. No injection or drainage. ENT: Nose without bleeding, purulent drainage. Throat without erythema, tonsillar hypertrophy or exudate. Airway patent. NECK: Trachea midline. Non tender CARDIOVASCULAR: Regular rate and rhythm without murmurs, gallops, or rubs. RESPIRATORY: Clear to auscultation. Breath sounds equal bilaterally. No wheezes, rales, or rhonchi. GASTROINTESTINAL: Abdomen soft, non-tender, nondistended. EXTREMITIES: No edema or joint tenderness. BACK: Nontender without deformity or crepitance. No flank tenderness. NEURO: AOx3. SKIN: No rash or erythema of visible areas Initial Vital Signs Initial Vital Signs: Vital Signs Temperature 98.5 F 08/31/21 21:28 Pulse Rate 88 08/31/21 21:28 Respiratory Rate 18 08/31/21 21:28 Blood Pressure 191/108 H 08/31/21 21:28 Pulse Oximetry 100 08/31/21 21:28 Course Orders Ordered: ED Orders 08/31/21 23:30 Complete Blood Count AUTO DIFF Stat Comprehensive Metabolic Panel Stat Lipase Stat 09/01/21 00:25 Urine Microscopic Stat 09/01/21 01:10 US pelvic complete Stat Discontinued Medications Ketorolac Tromethamine (Ketorolac 30 Mg/Ml Vial) 15 mg IV NOW ONE Stop: 09/01/21 01:11 Last Admin: 09/01/21 01:58 Dose: 15 mg Documented by: [email or web address] Vital Signs Vital signs: Vital Signs - 8 hr 08/31/21 21:28 09/01/21 02:04 Temperature 98.5 F Pulse Rate 88 66 Respiratory Rate 18 16 Blood Pressure 191/108 H 184/95 H Pulse Oximetry 100 99 MDM - Abdominal Pain Lab Data Result diagrams: 08/31/21 23:30 08/31/21 23:30 Labs: Lab Results 08/31/21 08/31/21 09/01/21 Range/Units 23:30 23:30 00:25 WBC 8.7 (4.5-11.0) X10^3/uL RBC 4.52 (4.0-5.2) X10^6/uL Hgb 12.6 (12.0-16.0) g/dL Hct 36.8 (36-46) % MCV 81.5 (80-100) fL MCH 27.8 (26-34) PG MCHC 34.2 (30-36) % RDW 13.6 (11.6-14.8) % Plt Count 300 (150-400) X10^3/uL Neut % (Auto) 64.8 (50-75) % Lymph % (Auto) 24.3 L (25-40) % [place] % (Auto) 9.2 (3-14) % Eos % (Auto) 1.3 L (2-4) % Baso % (Auto) 0.4 (0-2) % Neut # (Auto) 5700 (1705-7447) /uL Lymph # (Auto) 2100 (9768-7749) /uL [place] # (Auto) 800 (0-900) /uL Eos # (Auto) 100 (0-450) /uL Baso # (Auto) 0 (0-100) /uL Sodium 137 (137-145) mmol/L Potassium 3.5 (3.4-5.1) mmol/L Chloride 104 (98-107) mmol/L Carbon Dioxide 23 (22-32) mmol/L BUN 19 H (7-17) mg/dL Creatinine 0.81 (0.52-1.04) mg/dL Estimated GFR > 60 (>60) mL/min BUN/Creatinine Ratio 23.5 H (6-22) Glucose 148 H (70-100) mg/dL Calcium 8.9 (8.4-10.2) mg/dL Total Bilirubin 0.3 (0.2-1.3) mg/dL AST 22 (14-36) IU/L ALT 15 (<35) IU/L Alkaline Phosphatase 72 (38-126) U/L Total Protein 7.1 (6.3-8.2) g/dL Albumin 4.2 (3.5-5.0) g/dL Globulin 2.9 (1.7-4.1) g/dL Albumin/Globulin Ratio 1.4 (1.0-2.8) Lipase 89 (23-300) U/L Urine RBC 0-1/hpf (0-5/HPF) Urine WBC 0-1/hpf (0-5/HPF) Ur Squamous Epith Cells 0-1 /hpf (0-5/HPF) Calcium Oxalate Crystal Moderate H Urine Bacteria None seen (None) Ur Culture Indicated? Cult not indicated Point of care testing: Point of Care Testing Test Results Negative Urine Dip Bedside Urine Glucose Negative Bedside Urine Bilirubin - Negative Bedside Urine Ketone - Negative Urine Specific [place] 1.030 Bedside Urine Occult Blood + Bedside Urine pH 6 Bedside Urine Protein - Negative Bedside Urine Urobilinogen - Negative Bedside Urine Nitrite - Negative Bedside Urine Leukocytes - Negative Esterase MDM Narrative Medical decision making narrative: Multiple etiologies for patient's symptoms considered include, but not limited to: [Bowel obstruction versus kidney stone versus diverticulitis versus other Patient's symptoms improved over duration of stay with above-stated therapies. History, physical exam, labs, imaging, and response to therapies have been reassuring. Findings and discharge diagnosis discussed with patient/family followed by verbalization of understanding Return precautions discussed with patient/family whom verbalize understanding. Pain has been well controlled and patient is tolerating oral hydration. Discharge Plan Departure Patient Disposition: Home Clinical Impression: Abdominal pain Instructions: DI for Abdominal Pain-Adult Activity Restrictions/Additional Instructions: *You have been diagnosed with [lower pelvic pain, likely ovarian pain given her history and response to therapies. As we discussed your labs and ultrasound are very reassuring and there is no up evidence to suggest that you would need admission, surgical intervention or other specific therapy. *What to do: *Please continue to take your regular medications as directed. [x ] New medication prescriptions sent to your pharmacy: [[facility] ] [ ] New medication written as a paper prescription [ ] No new medications given *Please follow up with your primary care provider in 2-3 days, call for an appointment. Let them know you were seen in the Emergency Department and that we ask that you be seen in follow up. We will electronically transmit a record of today's note if your PCP is in our system *If you do not have a primary care provider please contact the [facility] Resource line at [phone]. They will ask some questions about your medical history and help get you set up with a doctor in the community. *Return to Emergency Department if you should have any new, worsening or concerning symptoms, such as [fever greater than 101 F, shaking chills, worsen ing pain, persistent vomiting or other bothersome symptoms] Prescriptions: New ketorolac 10 mg tablet 10 mg PO Q6H PRN (Reason: pain) Qty: 14 0RF No Action levofloxacin [Levaquin] 750 mg tablet 750 mg PO DAILY Qty: 7 0RF lisinopril 10 mg tablet 10 mg PO DAILY Qty: 14 0RF
== END 2021-09-01 02:45 | disposition home or self-care (01) ==
PROVIDERS: Emergency Provider Emergency Medicine
DX: R10.32 Left lower quadrant pain (principal); R10.31 Right lower quadrant pain
CPT/HCPCS: 36415; 76830; 76856; 80053; 81003; 81015; 81025; 83690; 85025; 96374; 99284; J1885

== ENCOUNTER 2021-11-19 16:09 | Emergency (ER) | payer OTHER, MEDICAID, SELFPAY ==
[2021-11-19 16:22] VITALS: BP 207/104; PULSE 85; RESP 18; TEMP 36.4; O2SAT 99; BMI 29.7
--- NOTE | 2021-11-19 16:31 | ED_ITS ---
HPI - Female Genitourinary General Chief complaint: Urogenital-Female Stated complaint: Bladder infection moving to kidneys Time Seen by Provider: 11/19/21 16:29 Source: patient Mode of arrival: Ambulatory History of Present Illness HPI Narrative: Patient is a 46-year-old female has had remote history of UTIs presenting today with UTI like symptoms. For the last 4 days she has had painful frequent urination. Today she noticed some left flank pain. Denies fever chills nausea or vomiting. She says previously she has needed to be hospitalized and was close to sepsis. She states she has a history of hypertension she was previously on lisinopril however she has been off of it year. She is noted to be quite hypertensive initially. She denies any chest pain palpitations or shortness of breath. Related Data Previous Rx's Medication Instructions Recorded levofloxacin 750 mg tablet 750 mg PO DAILY #7 tabs 02/15/19 (Levaquin) lisinopril 10 mg tablet 10 mg PO DAILY #14 tabs 10/20/20 ketorolac 10 mg tablet 10 mg PO Q6H PRN pain #14 tabs 09/01/21 ciprofloxacin HCl 500 mg tablet 500 mg PO BID #14 tabs 11/19/21 (Cipro) Allergies Allergy/AdvReac Type Severity Reaction Status Date / Time erythromycin base Allergy Anaphylaxis Verified 10/15/20 12:53 Penicillins Allergy Verified 10/15/20 12:53 Sulfa (Sulfonamide Allergy Verified 02/15/19 07:07 Antibiotics) Review of Systems Review of Systems Narrative: GENERAL: Denies chills, fatigue, malaise, fever, sweats, travel HEENT: Denies sinus pain, ear pain, sore throat, difficulty swallowing, neck pain RESPIRATORY: Denies dyspnea, cough, wheezing, hemoptysis, sputum. CARDIOVASCULAR: Denies chest pain, palpitations, orthopnea, edema GASTROINTESTINAL: Denies nausea, vomiting, abdominal pain, diarrhea, constipation, melena. : See HPI MUSCULOSKELETAL: Denies weakness, joint pain, or bony pain SKIN: No rash, no erythema, no pruritus NEUROLOGIC: Denies weakness, dizziness, headache, numbness, change in speech, confusion PSYCHIATRIC: No concerning psychosocial issues. 12 point review of systems is negative except for those stated above and HPI Patient History tobacco type: cigarettes and vaping alcohol intake frequency: 0-2 drinks per day Substance Use Type: marijuana Exam Initial Vital Signs Initial Vital Signs: Vital Signs Temperature 97.6 F 11/19/21 16:22 Pulse Rate 85 11/19/21 16:22 Respiratory Rate 18 11/19/21 16:22 Blood Pressure 207/104 H 11/19/21 16:22 Pulse Oximetry 99 11/19/21 16:22 Oxygen Delivery Method 11/19/21 16:22 GENERAL: Alert pleasant female and in no acute distress. HEENT: Head atraumatic,EOMI, pupils reactive, face symmetric, moist mucous membranes CARDIOVASCULAR: Regular rate and rhythm without murmurs, rubs or gallops. RESPIRATORY: Breath sounds equal bilaterally, no wheezes rales or rhonchi. ABDOMEN: Soft, nontender. Normoactive bowel sounds all 4 quadrants. No guarding or rebound. : Minimal left CVA tenderness EXTREMITIES: Normal range of motion, no clubbing or edema. Neurovascularly intact NEUROLOGICAL: Alert and oriented x4.Normal gait and speech. SKIN: Warm, dry, no laceration, no petechiae, no rashes or lesions. Course Orders Ordered: ED Orders 11/19/21 16:40 Complete Blood Count AUTO DIFF Stat Comprehensive Metabolic Panel Stat Lipase Stat 11/19/21 17:28 Urine Culture Stat Urine Microscopic Stat Discontinued Medications Sodium Chloride (Normal Saline 0.9%) 1,000 mls @ 1,000 mls/hr IV BOLUS ONE Stop: 11/19/21 17:26 Last Infusion: 11/19/21 18:06 Dose: 0 mls/hr Documented By: Admin: 11/19/21 16:59 Dose: 1,000 mls/hr Documented By: CONSTANTIN Vital Signs Vital signs: Vital Signs - 8 hr 11/19/21 16:22 11/19/21 16:37 11/19/21 17:02 Temperature 97.6 F Pulse Rate 85 76 98 H Respiratory Rate 18 Blood Pressure 207/104 H Pulse Oximetry 99 99 94 Oxygen Delivery Method Room Air 11/19/21 17:04 11/19/21 17:04 11/19/21 17:30 Temperature Pulse Rate 85 Respiratory Rate Blood Pressure 181/81 H 167/90 H Pulse Oximetry 100 Oxygen Delivery Method 11/19/21 17:30 11/19/21 18:00 11/19/21 18:00 Temperature Pulse Rate 80 88 Respiratory Rate Blood Pressure 176/97 H Pulse Oximetry 99 99 Oxygen Delivery Method MDM - Female Genitourinary Lab Data Result diagrams: 11/19/21 16:40 11/19/21 16:40 Labs: Lab Results 11/19/21 11/19/21 11/19/21 Range/Units 16:40 16:40 17:28 WBC 8.3 (4.5-11.0) X10^3/uL RBC 4.39 (4.0-5.2) X10^6/uL Hgb 12.3 (12.0-16.0) g/dL Hct 36.1 (36-46) % MCV 82.4 (80-100) fL MCH 27.9 (26-34) PG MCHC 33.9 (30-36) % RDW 13.2 (11.6-14.8) % Plt Count 278 (150-400) X10^3/uL Neut % (Auto) 63.1 (50-75) % Lymph % (Auto) 25.6 (25-40) % [place] % (Auto) 9.7 (3-14) % Eos % (Auto) 1.1 L (2-4) % Baso % (Auto) 0.5 (0-2) % Neut # (Auto) 5200 (4994-1724) /uL Lymph # (Auto) 2100 (2266-1723) /uL [place] # (Auto) 800 (0-900) /uL Eos # (Auto) 100 (0-450) /uL Baso # (Auto) 0 (0-100) /uL Sodium 139 (137-145) mmol/L Potassium 3.4 (3.4-5.1) mmol/L Chloride 105 (98-107) mmol/L Carbon Dioxide 26 (22-32) mmol/L BUN 24 H (7-17) mg/dL Creatinine 1.00 (0.52-1.04) mg/dL Estimated GFR > 60 (>60) mL/min BUN/Creatinine Ratio 24.0 H (6-22) Glucose 106 H (70-100) mg/dL Calcium 9.5 (8.4-10.2) mg/dL Total Bilirubin 0.2 (0.2-1.3) mg/dL AST 21 (14-36) IU/L ALT 17 (<35) IU/L Alkaline Phosphatase 61 (38-126) U/L Total Protein 6.9 (6.3-8.2) g/dL Albumin 4.0 (3.5-5.0) g/dL Globulin 2.9 (1.7-4.1) g/dL Albumin/Globulin Ratio 1.4 (1.0-2.8) Lipase 72 (23-300) U/L Urine RBC 0-1/hpf (0-5/HPF) Urine WBC 5-10/hpf H (0-5/HPF) Urine Bacteria Many (>30) H (None) Ur Culture Indicated? Specimen cultured Urine Dip Bedside Urine Glucose Negative Bedside Urine Bilirubin - Negative Bedside Urine Ketone - Negative Urine Specific [place] 1.03 Bedside Urine Occult Blood + Bedside Urine pH 6 Bedside Urine Protein + 30 Bedside Urine Urobilinogen - Negative Bedside Urine Nitrite + Positive Bedside Urine Leukocytes +/- 15 Esterase MDM Narrative Medical decision making narrative: Patient has symptoms consistent with UTI and kidney infection. Urine is consist ent with such. She has allergies to penicillin and sulfa will start her on Cipro. Overall does not appear septic. Discharge Plan Departure Patient Disposition: Home Clinical Impression: Urinary tract infection Instructions: DI for Urinary Tract Infection (UTI) Activity Restrictions/Additional Instructions: *You have been diagnosed with UTI *What to do: At this time blood work is overall reassuring. If increase fluid intake. I do recommend that he restart taking your blood pressure medication. *Continue to take medications as directed Cipro 500 mg twice a day for 7 days--> SENT TO [facility] [place] *Follow up with your primary care provider in 2-3 days or call [phone] *Return to ER if you should have increasing pain, fever confusion or any new, worsening or concerning symptoms Prescriptions: New ciprofloxacin HCl [Cipro] 500 mg tablet 500 mg PO BID Qty: 14 0RF No Action levofloxacin [Levaquin] 750 mg tablet 750 mg PO DAILY Qty: 7 0RF lisinopril 10 mg tablet 10 mg PO DAILY Qty: 14 0RF ketorolac 10 mg tablet 10 mg PO Q6H PRN (Reason: pain) Qty: 14 0RF Visit Report Forms: Patient Portal/API
[2021-11-19 16:37] VITALS: PULSE 76; O2SAT 99
[2021-11-19 16:59] LABS: Add Manual Diff / Slide Review NO; Basophils Absolute Auto 0 /uL (0-100); Basophils Percent Auto 0.5 % (0-2); Eosinophils Absolute Auto 100 /uL (0-450); Eosinophils Percent Auto 1.1 % (2-4); Hematocrit 36.1 % (36-46); Hemoglobin 12.3 g/dL (12.0-16.0); Lymphocytes Absolute Auto 2100 /uL (1100-4500); Lymphocytes Percent Auto 25.6 % (25-40); Mean Corpuscular HGB Conc 33.9 % (30-36); Mean Corpuscular Hemoglobin 27.9 PG (26-34); Mean Corpuscular Volume 82.4 fL (80-100); Monocytes Absolute Auto 800 /uL (0-900); Monocytes Percent Auto 9.7 % (3-14); Neutrophils Absolute Auto 5200 /uL (1500-7000); Neutrophils Percent Auto 63.1 % (50-75); Platelet Count 278 X10^3/uL (150-400); Red Blood Cell Count 4.39 X10^6/uL (4.0-5.2); Red Cell Distribution Width 13.2 % (11.6-14.8); White Blood Cell Count 8.3 X10^3/uL (4.5-11.0)
[2021-11-19] MEDS: SODIUM CHLORIDE 0.9% 1,000 ML 1000 ML IV (16:59)
[2021-11-19 17:02] VITALS: PULSE 98; O2SAT 94
[2021-11-19 17:04] VITALS: BP 181/81; PULSE 85; O2SAT 100
[2021-11-19 17:06] LABS: Alanine Aminotransferase 17 IU/L (<35); Albumin Globulin Ratio 1.4 (1.0-2.8); Alkaline Phosphatase 61 U/L (38-126); Aspartate Aminotransferase 21 IU/L (14-36); Bilirubin Total 0.2 mg/dL (0.2-1.3); Blood Urea Nitrogen 24 mg/dL (7-17); Calcium 9.5 mg/dL (8.4-10.2); Carbon Dioxide 26 mmol/L (22-32); Chloride 105 mmol/L (98-107); Estimated Glomerular Filt Rate > 60 mL/min (>60); Globulin 2.9 g/dL (1.7-4.1); Glucose 106 mg/dL (70-100); HEMOLYSIS < 15 (0-50); Lipase 72 U/L (23-300); Potassium 3.4 mmol/L (3.4-5.1); Sodium 139 mmol/L (137-145); Total Protein 6.9 g/dL (6.3-8.2)
[2021-11-19 17:30] VITALS: BP 167/90; PULSE 80; O2SAT 99
[2021-11-19 17:45] LABS: Bacteria Urine Many (>30); RBC Urine 0-1/HPF (0-5/HPF); WBC Urine 5-10/HPF (0-5/HPF)
[2021-11-19 17:46] LABS: Culture Indicated Urine Specimen Cultured
[2021-11-19 18:00] VITALS: BP 176/97; PULSE 88; O2SAT 99
== END 2021-11-19 18:08 | disposition home or self-care (01) ==
PROVIDERS: Emergency Provider Emergency Medicine
DX: N39.0 Urinary tract infection, site not specified (principal)
CPT/HCPCS: 36415; 80053; 81003; 81015; 83690; 85025; 87077; 87086; 87186; 96360; 99284

== ENCOUNTER 2022-06-25 06:44 | Emergency (ER) | payer OTHER, MEDICAID, SELFPAY ==
[2022-06-25] VITALS (9 sets, daily range): BP systolic 156–206; BP diastolic 74–104; PULSE 71–83; RESP 17; TEMP 36.6; O2SAT 96–100; BMI 34.1
[2022-06-25] MEDS: TET,DIPH,PERTUSS(ACELL),VAC/PF 0.5 ML SYRINGE IM (07:04)
[2022-06-25] MEDS: HYDROCODONE/ACET 5/325 PREPACK 1 BOTTLE MISC (07:04)
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
[2022-06-25 07:30] LABS: COVID19 -Nasal RAPID Negative (Negative)
[2022-06-25] MEDS: MORPHINE 4 MG/ML INJ IV (08:10)
[2022-06-25] MEDS: ONDANSETRON 4 MG/2 ML INJ IV (08:10)
[2022-06-25] MEDS: BACITRACIN OINT 0.9 GM PCKT 4 APPLIC TOP (09:00)
--- NOTE | 2022-06-25 11:20 | PC.NURSE ---
Report given to Chema GALE Amb
--- NOTE | 2022-06-25 11:45 | PC.NURSE ---
Pt declines ekg, declines IV, declines labs. Physician aware. Pt states to this RN something weird is happening, is this really [facility] ER? There's something weird going on right now and how do I know you really work here?
== END 2022-06-25 11:00 | disposition short-term general hospital (02) ==
PROVIDERS: Emergency Medicine; Emergency Provider Emergency Medicine
DX: T23.292A Burn of second degree of multiple sites of left wrist and hand, initial encounter (principal); T23.291A Burn of second degree of multiple sites of right wrist and hand, initial encounter; T25.022A Burn of unspecified degree of left foot, initial encounter; T25.021A Burn of unspecified degree of right foot, initial encounter; T20.06XA Burn of unspecified degree of forehead and cheek, initial encounter; X08.8XXA Exposure to other specified smoke, fire and flames, initial encounter; Z23 Encounter for immunization
CPT/HCPCS: 81003; 87635; 90471; 96374; 96375; 99284; C9803; 90715; J2270; J2405